=== PATIENT | female | born 1980 | race Caucasian/White ===

== ENCOUNTER 2016-09-05 02:32 | Emergency (ER) | payer MEDICAID ==
[~2016-09-05] VITALS: Ht 165.1 cm; Wt 61.3 kg
[~2016-09-05 02:32] MED LIST: ACET500C5 PO; CALC-649; CIPR500T4 PO; IBUP-1542 PO; PNV PO; PREN1TAB49; PREN1TAB49 PO
[2016-09-05 02:37] VITALS: Ht 165.1 cm; Wt 61.3 kg
[2016-09-05] MEDS ORDERED: SOD CHLORIDE 0.9% 1,000 ML IV STA (03:24)
[2016-09-05] MEDS ORDERED: morphine 4 MG/ML VIAL IV STA (03:24)
[2016-09-05] MEDS ORDERED: LIDOCAINE/MYLANTA 40 ML BTL PO STA (03:24)
[2016-09-05] MEDS ORDERED: ONDANSETRON 4 MG INJ IV STA (03:24)
[2016-09-05] MEDS ORDERED: FAMOTIDINE 20 MG INJ IV STA (03:24)
[2016-09-05 04:04] LABS: ADD SCAN DIFF NO
[2016-09-05 04:12] LABS: BASOPHILS % 0.4 % (0.0-2.0); EOSINOPHILS # 0.2 10^3/ul (0.0-0.5); EOSINOPHILS % 2.5 % (0.0-7.0); HEMATOCRIT 40.8 % (37.0-47.0); HEMOGLOBIN 12.9 g/dl (12.0-16.0); LYMPHOCYTES # 2.3 10^3/ul (0.8-2.9); MEAN CORPUSCULAR HEMOGLOBIN 25.9 pg (29.0-33.0); MEAN CORPUSCULAR HGB CONC 31.6 g/dl (32.0-37.0); MEAN CORPUSCULAR VOLUME 81.8 fl (82.0-101.0); MONOCYTE # 0.5 10^3/ul (0.3-0.9); NEUTROPHIL # 5.8 10^3/ul (1.6-7.5); NEUTROPHILS % 64.7 % (39.0-77.0); PLATELET COUNT 242 10^3/UL (140-415); RED BLOOD COUNT 4.99 10^6/ul (4.20-5.40); WHITE BLOOD COUNT 8.9 10^3/ul (4.8-10.8)
[2016-09-05 04:24] LABS: ALBUMIN 3.8 g/dl (3.3-4.9)
[2016-09-05 04:32] LABS: ADD UMIC YES; URINE BILIRUBIN (Dip) NEGATIVE (NEGATIVE); URINE BLOOD (Dip) 1+ (NEGATIVE); URINE COLOR LT. YELLOW (YELLOW); URINE GLUCOSE (Dip) NEGATIVE (NEGATIVE); URINE KETONES (Dip) NEGATIVE (NEGATIVE); URINE LEUKOCYTE ESTERASE (Dip) 2+ (NEGATIVE); URINE NITRITE (Dip) NEGATIVE (NEGATIVE); URINE TOTAL PROTEIN (Dip) NEGATIVE (NEGATIVE); URINE UROBILINOGEN (Dip) 0.2 E.U./dL (0.1-1.0)
[2016-09-05 04:38] LABS: BILIRUBIN,INDIRECT 0.1 mg/dl (0-1.1); BILIRUBIN,TOTAL 0.1 mg/dl (0.2-1.3)
[2016-09-05 04:39] LABS: CALCIUM 8.7 mg/dl (8.4-10.2)
[2016-09-05 04:41] LABS: BACTERIA,URINE MANY; SQUAMOUS EPITHELIAL CELL,UR MANY
--- NOTE | 2016-09-05 05:36 | ERD ---
ER Documentation Chief Complaint Date/Time DATE: 09/05/16 TIME: 05:43 Chief Complaint C/O MID EPIGASTRIC PAIN X2 DAYS +VOMITING HPI This is a [id number] female with midepigastric abdominal pain for 2 days. Said mild vomiting. 2 episodes. Nonbilious nonbloody. No fevers no chills. No other current complaints. Pain is mild to moderate in intensity. ROS All systems reviewed and are negative except as per history of present illness. Medications Home Meds Active Scripts Acetaminophen* (Tylophen*) 500 Mg Capsule, 1 CAP PO Q6H Y for PAIN AND OR ELEVATED TEMP, #20 CAP Prov:VANCE,KELLY CORDERO 08/22/15 Ibuprofen* (Motrin*) 600 Mg Tab, 600 MG PO Q6, #30 TAB Prov:KELLY WOODARD PA-C 08/22/15 Ciprofloxacin Hcl* (Ciprofloxacin Hcl*) 500 Mg Tablet, 500 MG PO BID for 10 Days , TAB Prov:KELLY WOODARD PA-C 08/22/15 Reported Medications Pnv #14/Ferrous Fum/Folic Acid (RE MULTIVIT W-IRON TB) 1 Each Tab.chew , 1 EACH PO DAILY 01/07/13 Vits W-Ca,Fe,Fa(<1MG) () 1 Tab Tablet, 1 TAB PO DAILY 09/04/12 Calcium Carbonate (Calcium) 1 Tab Tablet 08/07/10 Vits W-Ca,Fe,Fa(<1MG) () 1 Tab Tablet 08/07/10 Allergies Allergies: Coded Allergies: No Known Drug Allergies (Verified Allergy, Mild, 08/07/10) No Known Allergy (Verified Allergy, Unknown, 07/18/10) PMhx/Soc Medical and Surgical Hx: pt denies Medical Hx, pt denies Surgical Hx Hx Alcohol Use: No Hx Substance Use: No Hx Tobacco Use: No Smoking Status: Never smoker Physical Exam Vitals Vital Signs Date Time Temp Pulse Resp B/P Pulse Ox O2 Delivery O2 Flow Rate FiO2 09/05/16 02:37 98.1 76 18 115/68 98 Physical Exam Const: [] Head: Atraumatic Eyes: Normal Conjunctiva ENT: Normal External Ears, Nose and Mouth. Neck: Full range of motion..~ No meningismus. Resp: Clear to auscultation bilaterally Cardio: Regular rate and rhythm, no murmurs Abd: Soft, non tender, non distended. Normal bowel sounds Skin: No petechiae or rashes Back: No midline or flank tenderness Ext: No cyanosis, or edema Neur: Awake and alert Psych: Normal Mood and Affect Result Diagram: 09/05/16 0326 09/05/16 0326 Results 24 hrs Laboratory Tests Test 09/05/16 03:26 09/05/16 03:43 Alanine Aminotransferase (ALT/SGPT) 18IU/L Albumin 3.8g/dl Albumin/Globulin Ratio 1.31 Alkaline Phosphatase 84IU/L Anion Gap 15 Aspartate Amino Transf (AST/SGOT) 23IU/L Basophils # 0.010^3/ul Basophils % 0.4% Blood Urea Nitrogen 17mg/dl Calcium Level 8.7mg/dl Carbon Dioxide Level 27mmol/L Chloride Level 104mmol/L Creatinine 0.56mg/dl Direct Bilirubin 0.00mg/dl Eosinophils # 0.210^3/ul Eosinophils % 2.5% Globulin 2.90g/dl Glucose Level 90mg/dl Hematocrit 40.8% Hemoglobin 12.9g/dl Indirect Bilirubin 0.1mg/dl Lipase 178U/L Lymphocytes # 2.310^3/ul Lymphocytes % 26.0% Mean Corpuscular Hemoglobin 25.9pg Mean Corpuscular Hemoglobin Concent 31.6g/dl Mean Corpuscular Volume 81.8fl Mean Platelet Volume 11.0fl Monocytes # 0.510^3/ul Monocytes % 6.0% Neutrophils # 5.810^3/ul Neutrophils % 64.7% Nucleated Red Blood Cells # 0.010^3/ul Nucleated Red Blood Cells % 0.0/100WBC Platelet Count 29575^3/UL Potassium Level 4.0mmol/L Red Blood Count 4.9910^6/ul Red Cell Distribution Width 13.0% Sodium Level 142mmol/L Total Bilirubin 0.1mg/dl Total Protein 6.7g/dl White Blood Count 8.910^3/ul Urine Bacteria MANY Urine Bilirubin NEGATIVE Urine Clarity CLEAR Urine Color LT. YELLOW Urine Glucose NEGATIVE% Urine Hemoglobin 1+ Urine Ketones NEGATIVE Urine Leukocyte Esterase 2+ Urine Microscopic RBC 2-5/HPF Urine Microscopic WBC 10-25/HPF Urine Nitrite NEGATIVE Urine Specific [place] 1.015 Urine Squamous Epithelial Cells MANY Urine Total Protein NEGATIVE Urine Urobilinogen 0.2 E.U./dL Urine pH 7.0 Current Medications Medications (Trade) Dose Ordered Sig/[place] Route PRN Reason Start Time Stop Time Status Last Admin Dose Admin Sodium Chloride (NS) 1,000 ml @ 1,000 mls/hr Q1H STAT IV 09/05/16 03:24 09/05/16 04:23 DC 09/05/16 03:33 Morphine Sulfate (morphine) 4 mg ONCE STAT IV 09/05/16 03:24 09/05/16 03:25 DC 09/05/16 03:33 Ondansetron HCl (Zofran Inj) 4 mg ONCE STAT IV 09/05/16 03:24 09/05/16 03:25 DC 09/05/16 03:33 Famotidine (Pepcid Iv) 20 mg ONCE STAT IV 09/05/16 03:24 09/05/16 03:25 DC 09/05/16 03:33 Miscellaneous Medication (Gi Cocktail (2)) 40 ml ONCE STAT PO 09/05/16 03:24 09/05/16 03:25 DC 09/05/16 03:33 Procedures/MDM CBC: [no e/o of systemic infection or severe anemia] CMP: [no e/o severe acidosis, alkalosis, renal failure, diabetic ketoacidosis, liver disease] Lipase: [no e/o pancreatitis] PT/INR: [normal coagulation] Urine: [no e/o acute infection or hematuria] Medical decision-making: Patient has epigastric abdominal like it is acute gastritis. At this point pain is resolved. Patient was discharged him Zofran carefully Zantac. Follow-up in 8 hours for serial abdominal exams. Return for sooner for worsening symptoms Departure Diagnosis: Primary Impression: Abdominal pain Abdominal location: epigastric Qualified Code: R10.13 - Epigastric pain Condition: Stable NEGIN JENSEN Sep 05, 2016 05:43
[2016-09-05] MEDS ORDERED: ONDA4TAB14 PO (05:42)
[2016-09-05] MEDS ORDERED: SUCR1TAB56 PO (05:42)
[2016-09-05] MEDS ORDERED: RANI150T9 PO (05:42)
[2016-09-05] MEDS ORDERED: CIPR500T4 PO (05:43)
[2016-09-05 05:44] VITALS: BP 106/72; PULSE 62; RESP 18; TEMP 98
[2016-09-05 06:10] LABS: ALBUMIN/GLOBULIN RATIO 1.35; CREATININE 0.57 mg/dl (0.44-1.00); TOTAL PROTEIN 6.6 g/dl (6.1-8.1)
== END 2016-09-05 06:06 | disposition home or self-care (01) ==
LOC: E/R 02:32
DX: R10.13 Epigastric pain (principal); R11.10 Vomiting, unspecified
CPT/HCPCS: 36415; 80053; 81001; 83690; 85025; 96374; 96375; J2270; J2405; J7030; Z7502; Z7610; 81003